=== PATIENT | female | born 1960 | race Caucasian/White ===

== ENCOUNTER 2018-05-30 20:09 | Emergency (ER) | payer OTHER, SELFPAY ==
[2018-05-30 20:17] VITALS: BP 154/84; PULSE 100; RESP 18; TEMP 37.1; O2SAT 100
[2018-05-30] MEDS: SODIUM CHLORIDE 0.9% 1,000 ML 1000 ML IV ×2 (20:35→21:44)
[2018-05-30 20:42] LABS: Add Manual Diff / Slide Review NO; Eosinophils Percent Auto 1.2 % (2-4); Hemoglobin 15.4 g/dL (12.0-16.0); Lymphocytes Percent Auto 22.9 % (25-40); Mean Corpuscular HGB Conc 34.1 % (30-36); Mean Corpuscular Hemoglobin 30.3 PG (26-34); Mean Corpuscular Volume 88.8 fL (80-100); Monocytes Percent Auto 9.3 % (3-14); Neutrophils Absolute Auto 4100 /uL (3000-5900); Neutrophils Percent Auto 65.6 % (50-75); Platelet Count 217 X10^3/uL (150-400); Red Blood Cell Count 5.07 X10^6/uL (4.0-5.2); Red Cell Distribution Width 13.5 % (11.6-14.8); White Blood Cell Count 6.3 X10^3/uL (4.5-11.0)
[2018-05-30] MEDS: MECLIZINE HCL 12.5 MG TABLET 50 MG PO (20:45)
--- NOTE | 2018-05-30 20:50 | ED_ITS ---
HPI - Dizziness <Noris Willett PA-C - Last Filed: 05/30/18 22:23> General Chief Complaint: Dizziness Stated Complaint: VERTIGO Time Seen by Provider: 05/30/18 20:29 Source: patient Mode of arrival: ambulatory Limitations: no limitations History of Present Illness HPI Narrative: This 57-year-old female comes in due to 3 day history of nausea and vomiting and then onset of vertigo. She states that initially she woke up feeling dehydrated and like she might get a headache, so she had a big glass of water and took Excedrin and went back to bed , vomited a while later. She then woke up with vertigo, noticed when she got up out of bed. She states that she is asymptomatic if she stays still, but when she gets up and moves around or turns her head, the world starts to spin. She states that she has had nausea and vomiting associated with the episodes. She states that she has only vomited once today because she has tried to stay still. She states that she does have a history of migraine but has not had any headache. She denies any acute vision changes though states maybe a couple of weeks ago she started to notice her vision in general is a little bit blurry. She denies any earache or congestion or recent URI symptoms, but states she has noticed some ringing sensation in her ears since this started. She cannot tell what. She denies any chest pain or dyspnea. she has not noted any weakness, numbness, difficulty with speech, swallowing or coordination. She denies any fever. She has not had any abdominal pain, diarrhea, any urinary symptoms or other new complaints on systems review. She states that she has not been eating and drinking and mainly staying still due to the symptoms Related Data Previous Rx's Medication Instructions Recorded diazepam [Valium] 5 mg PO BID-TID PRN #5 tab 05/30/18 meclizine 25 mg PO BID-TID PRN #14 tab 05/30/18 ondansetron 4 mg PO BID-TID PRN #10 tab 05/30/18 Allergies Allergy/AdvReac Type Severity Reaction Status Date / Time Sulfa (Sulfonamide Allergy Unknown Verified 05/30/18 20:20 Antibiotics) Review of Systems <Noris Willett PA-C - Last Filed: 05/30/18 22:23> Review of Systems All systems reviewed & are unremarkable except as noted in HPI and below PFSH <Noris Willett PA-C - Last Filed: 05/30/18 22:23> Comment: rare EtOH, no street drugs Exam <Noris Willett PA-C - Last Filed: 05/30/18 22:23> Narrative Exam Narrative: GENERAL APPEARANCE: Patient resting comfortably on her side, in NAD HEENT: PERRL, EOMI, normal TMs and oropharynx NECK: Supple, no masses LUNGS: Clear to auscultation bilaterally. HEART: Rate and rhythm regular without murmur, normal S1 and S2, no S3 or S4. ABDOMEN: Soft, NT, ND, + BS x 4 quadrants NEUROLOGIC: Alert and oriented, normal speech, and coordination. no facial droop. Vertigo is elicited with position change. There are a few beats of horizontal nystagmus to the right side with position change MUSCULOSKELETAL: Full Csp AROM EXTREMITIES: No edema or calf tenderness Initial Vital Signs Initial Vital Signs: Vital Signs Temperature 98.7 F 05/30/18 20:17 Pulse Rate 100 H 05/30/18 20:17 Respiratory Rate 18 05/30/18 20:17 Blood Pressure 154/84 H 05/30/18 20:17 Pulse Oximetry 100 05/30/18 20:17 <Austin Benitez DO - Last Filed: 05/31/18 00:02> Initial Vital Signs Initial Vital Signs: Vital Signs Temperature 98.7 F 05/30/18 20:17 Pulse Rate 100 H 05/30/18 20:17 Respiratory Rate 18 05/30/18 20:17 Blood Pressure 154/84 H 05/30/18 20:17 Pulse Oximetry 100 05/30/18 20:17 Course <BRANDY Brown Last Filed: 05/30/18 22:23> Orders Ordered: ED Orders 05/30/18 20:35 Complete Blood Count AUTO DIFF Stat Comprehensive Metabolic Panel Stat Lipase Stat Discontinued Medications Sodium Chloride (Normal Saline 0.9%) 1,000 mls @ 1,000 mls/hr IV BOLUS ONE Stop: 05/30/18 21:29 Last Infusion: 05/30/18 21:40 Dose: 1,000 mls/hr Admin: 05/30/18 20:35 Dose: 1,000 mls/hr Sodium Chloride (Normal Saline 0.9%) 1,000 mls @ 1,000 mls/hr IV BOLUS ONE Stop: 05/30/18 22:27 Last Infusion: 05/30/18 22:45 Dose: 1,000 mls/hr Admin: 05/30/18 21:44 Dose: 1,000 mls/hr Ketorolac Tromethamine (Toradol) 30 mg IV NOW ONE Stop: 05/30/18 21:07 Last Admin: 05/30/18 21:10 Dose: 30 mg Lorazepam (Ativan) 1 mg IV NOW ONE Stop: 05/30/18 22:16 Last Admin: 05/30/18 22:27 Dose: 1 mg Meclizine HCl (Antivert) 50 mg PO NOW ONE Stop: 05/30/18 20:43 Last Admin: 05/30/18 20:45 Dose: 50 mg Vital Signs - 8 hr 05/30/18 20:17 05/30/18 21:47 05/30/18 22:00 Temperature 98.7 F 98.7 F Pulse Rate 100 H 100 H 80 Respiratory Rate 18 18 15 Blood Pressure 154/84 H 154/84 H Blood Pressure [Right Arm] 128/57 L Pulse Oximetry 100 100 97 05/30/18 23:22 Temperature Pulse Rate 76 Respiratory Rate 13 Blood Pressure Blood Pressure [Right Arm] 107/66 Pulse Oximetry 100 <Austin Benitez DO - Last Filed: 05/31/18 00:02> Orders Ordered: ED Orders 05/30/18 20:35 Complete Blood Count AUTO DIFF Stat Comprehensive Metabolic Panel Stat Lipase Stat Discontinued Medications Sodium Chloride (Normal Saline 0.9%) 1,000 mls @ 1,000 mls/hr IV BOLUS ONE Stop: 05/30/18 21:29 Last Infusion: 05/30/18 21:40 Dose: 1,000 mls/hr Admin: 05/30/18 20:35 Dose: 1,000 mls/hr Sodium Chloride (Normal Saline 0.9%) 1,000 mls @ 1,000 mls/hr IV BOLUS ONE Stop: 05/30/18 22:27 Last Infusion: 05/30/18 22:45 Dose: 1,000 mls/hr Admin: 05/30/18 21:44 Dose: 1,000 mls/hr Ketorolac Tromethamine (Toradol) 30 mg IV NOW ONE Stop: 05/30/18 21:07 Last Admin: 05/30/18 21:10 Dose: 30 mg Lorazepam (Ativan) 1 mg IV NOW ONE Stop: 05/30/18 22:16 Last Admin: 05/30/18 22:27 Dose: 1 mg Meclizine HCl (Antivert) 50 mg PO NOW ONE Stop: 05/30/18 20:43 Last Admin: 05/30/18 20:45 Dose: 50 mg Vital Signs - 8 hr 05/30/18 20:17 05/30/18 21:47 05/30/18 22:00 Temperature 98.7 F 98.7 F Pulse Rate 100 H 100 H 80 Respiratory Rate 18 18 15 Blood Pressure 154/84 H 154/84 H Blood Pressure [Right Arm] 128/57 L Pulse Oximetry 100 100 97 05/30/18 23:22 Temperature Pulse Rate 76 Respiratory Rate 13 Blood Pressure Blood Pressure [Right Arm] 107/66 Pulse Oximetry 100 MDM - Dizziness <Noris Willett PA-C - Last Filed: 05/30/18 22:23> Lab Data Result diagrams: 05/30/18 20:35 05/30/18 20:35 Lab Results 05/30/18 05/30/18 Range/Units 20:35 20:35 WBC 6.3 (4.5-11.0) X10^3/uL RBC 5.07 (4.0-5.2) X10^6/uL Hgb 15.4 (12.0-16.0) g/dL Hct 45.0 (36-46) % MCV 88.8 (80-100) fL MCH 30.3 (26-34) PG MCHC 34.1 (30-36) % RDW 13.5 (11.6-14.8) % Plt Count 217 (150-400) X10^3/uL Neut % (Auto) 65.6 (50-75) % Lymph % (Auto) 22.9 L (25-40) % Schley % (Auto) 9.3 (3-14) % Eos % (Auto) 1.2 L (2-4) % Baso % (Auto) 1.0 (0-2) % Neut # (Auto) 4100 (7390-9393) /uL Sodium 143 (137-145) mmol/L Potassium 3.8 (3.4-5.1) mmol/L Chloride 103 (98-107) mmol/L Carbon Dioxide 26 (22-32) mmol/L BUN 10 (7-17) mg/dL Creatinine 0.80 (0.52-1.04) mg/dL Estimated GFR > 60.0 (>60) mL/min BUN/Creatinine Ratio 12.5 (6-22) Glucose 113 H (70-100) mg/dL Calcium 10.1 (8.4-10.2) mg/dL Total Bilirubin 0.5 (0.2-1.3) mg/dL AST 24 (14-36) IU/L ALT 40 (9-52) IU/L Alkaline Phosphatase 102 (38-126) U/L Total Protein 8.0 (6.3-8.2) g/dL Albumin 4.7 (3.5-5.0) g/dL Globulin 3.3 (1.7-4.1) g/dL Albumin/Globulin Ratio 1.4 (1.0-2.8) Lipase 52 (23-300) U/L <Austin Benitez DO - Last Filed: 05/31/18 00:02> Lab Data Lab Results 05/30/18 05/30/18 Range/Units 20:35 20:35 WBC 6.3 (4.5-11.0) X10^3/uL RBC 5.07 (4.0-5.2) X10^6/uL Hgb 15.4 (12.0-16.0) g/dL Hct 45.0 (36-46) % MCV 88.8 (80-100) fL MCH 30.3 (26-34) PG MCHC 34.1 (30-36) % RDW 13.5 (11.6-14.8) % Plt Count 217 (150-400) X10^3/uL Neut % (Auto) 65.6 (50-75) % Lymph % (Auto) 22.9 L (25-40) % Schley % (Auto) 9.3 (3-14) % Eos % (Auto) 1.2 L (2-4) % Baso % (Auto) 1.0 (0-2) % Neut # (Auto) 4100 (0497-8543) /uL Sodium 143 (137-145) mmol/L Potassium 3.8 (3.4-5.1) mmol/L Chloride 103 (98-107) mmol/L Carbon Dioxide 26 (22-32) mmol/L BUN 10 (7-17) mg/dL Creatinine 0.80 (0.52-1.04) mg/dL Estimated GFR > 60.0 (>60) mL/min BUN/Creatinine Ratio 12.5 (6-22) Glucose 113 H (70-100) mg/dL Calcium 10.1 (8.4-10.2) mg/dL Total Bilirubin 0.5 (0.2-1.3) mg/dL AST 24 (14-36) IU/L ALT 40 (9-52) IU/L Alkaline Phosphatase 102 (38-126) U/L Total Protein 8.0 (6.3-8.2) g/dL Albumin 4.7 (3.5-5.0) g/dL Globulin 3.3 (1.7-4.1) g/dL Albumin/Globulin Ratio 1.4 (1.0-2.8) Lipase 52 (23-300) U/L MDM Narrative Medical decision making narrative: Received turned over from day [facility]. Patient with a current diagnosis of peripheral vertigo. She was given meclizine which did not improve her symptoms. Was given fluids which did not improve her symptoms. She was then given benzodiazepine which she states did improve her symptoms but did not completely take the symptoms away. Otherwise normal neurologic exam. Had a discussion with the patient regarding her symptoms. Informed her the importance of establishing care with a primary care doctor. Will send home with a prescription of both Antivert and Valium with instructions to use the Valium only in refractory cases. Also sent home with a prescription for Zofran. Patient was given return precautions. She expressed understanding and agreement with plan. Discharge Plan Departure Patient Disposition: Home Clinical Impression: Vertigo Instructions: DI for Vertigo Activity Restrictions/Additional Instructions: Please drink clear fluids and eat small amounts of food every hour or 2 to help with your nausea. Move very slowly and move your whole body at once when you get up. You can use the medicine we gave you for nausea as needed. You should call your [facility] first thing in the morning and let them know that you were seen in the emergency room with several days of vertigo and ringing in your ears. See if they want you to follow up there or do a local referral (i.e. for an ear/nose/throat specialist). you should return if you have any acutely worsening symptoms again, i.e. inability to keep down fluids, severe headache, or new symptoms such as fever, weakness in your face or extremities, or difficulty with speech or swallowing Prescriptions: New meclizine 25 mg tablet 25 mg PO BID-TID PRN (Reason: motion sickness) Qty: 14 RF: 0 ondansetron 4 mg tablet,disintegrating 4 mg PO BID-TID PRN (Reason: nausea and vomiting) Qty: 10 RF: 0 diazepam [Valium] 5 mg tablet 5 mg PO BID-TID PRN (Reason: vertigo) Qty: 5 RF: 0 Referrals: [facility] [Other] ED Cosign/Signout <Noris Willett PA-C - Last Filed: 05/30/18 22:23> Sign Out Provider Sign Out Attestation: patient has not had any recurrent vomiting. Earlier in the evening she stated that she was starting to get a slight headache , which resolved completely after Toradol, but she did not think that vertigo was better, had great difficulty getting up to commode due to dizziness. she was able to tolerate a cracker and some juice. Findings reviewed with Dr. Benitez and we will try a dose of Ativan and he will monitor until discharge. discussed plan with her of calling her primary care office ( she has been seen once but does not remember specific provider ) 1st thing in the morning to arrange follow-up and possible local referral to ENT since she has had new tinnitus with this.
[2018-05-30 20:53] LABS: Alanine Aminotransferase 40 IU/L (9-52); Albumin 4.7 g/dL (3.5-5.0); Albumin Globulin Ratio 1.4 (1.0-2.8); Alkaline Phosphatase 102 U/L (38-126); Aspartate Aminotransferase 24 IU/L (14-36); BUN Creatinine Ratio 12.5 (6-22); Bilirubin Total 0.5 mg/dL (0.2-1.3); Blood Urea Nitrogen 10 mg/dL (7-17); Calcium 10.1 mg/dL (8.4-10.2); Carbon Dioxide 26 mmol/L (22-32); Chloride 103 mmol/L (98-107); Estimated Glomerular Filt Rate > 60.0 mL/min (>60); Globulin 3.3 g/dL (1.7-4.1); Glucose 113 mg/dL (70-100); HEMOLYSIS < 15 (0-50); Lipase 52 U/L (23-300); Potassium 3.8 mmol/L (3.4-5.1); Sodium 143 mmol/L (137-145)
[2018-05-30] MEDS: KETOROLAC 60 MG/2 ML VIAL 30 MG IV (21:10)
[2018-05-30 21:47] VITALS: BP 154/84; PULSE 100; RESP 18; TEMP 37.1; O2SAT 100
[2018-05-30 22:00] VITALS: BP 128/57; PULSE 80; RESP 15; O2SAT 97
[2018-05-30] MEDS: LORazepam 2 MG/ML SYRINGE 1 MG IV (22:27)
[2018-05-30 23:22] VITALS: BP 107/66; PULSE 76; RESP 13; O2SAT 100
== END 2018-05-30 23:40 | disposition home or self-care (01) ==
PROVIDERS: Internal Medicine; Emergency Provider Emergency Medicine
DX: R42 Dizziness and giddiness (principal)
CPT/HCPCS: 36415; 36591; 80053; 83690; 85025; 96361; 96374; 96375; 99283; 99284; J1885; J2060

== ENCOUNTER 2020-04-15 13:30 | Outpatient (RCR) | payer OTHER, SELFPAY ==
--- NOTE | 2020-03-25 15:49 | PT.OIE ---
Current Diagnoses Labyrinthitis, right ear (03/25/20) Unspecified hearing loss, right ear (03/25/20) Tinnitus, right ear (03/25/20) Dizziness and giddiness (03/25/20) Past Medical History (Last Updated 05/30/18 @ 20:48 by Noris Willett PA-C) Migraines (Chronic) Past Surgical History (Last Updated 05/30/18 @ 20:48 by Noris Willett PA-C) No pertinent past surgical history (Chronic) Visit Care Team Role Provider Type Antony Briseno MD Primary Care Provider Physician Specialty: Family Practice Address: [address] [place] [address], [id number] Email: Martin Ozuna MD Attending Provider Physician Referring Provider Specialty: Ear, Nose, Throat Address: [address] [place] [address], [address] Email: [email or web address] Physical Therapy Initial Evaluation PT-OP-A Visit Information Start: 03/25/20 08:28 Freq: Status: Active Protocol: Document 03/25/20 13:30 AMB (Rec: 03/25/20 15:28 AMB [email or web address]) Out-Patient Physical Therapy Visit Information Visit Information Visit Type Initial Evaluation Visit Start Time 13:30 Visit Stop Time 14:30 Total Visit Minutes 60 Visit Number 1 PT-OP-B Current Condition Start: 03/25/20 08:28 Freq: Status: Active Protocol: Document 03/25/20 13:30 AMB (Rec: 03/25/20 13:58 AMB [id number]) Current Condition History of Current Condition Onset Date May 2018 Current Complaints dizziness History of Current Condition Chinyere lives on [place] with her . She has had debilitating dizziness, R sided tinnitus for 2 years. Unfortunately she was not able to get vestibular therapy due to insurance issues and then covid. She walks with her dogs, and tries to look in multiple directions while walking. Originally she was hospitalized for a week and had to stay in a hotel for a few weeks afterwards because she couldn't manage at home. Falls: 12-15 in the last 3 months. Was previously biking , kayaking. [place] . Diminished eye sight due to high levels of prednisone. Feels like she has to look at the ground to walk. Treatment Goals Patient/Caregiver Goals Would like to return to some type of work, anyting to reduce the tinnitis, be able to walk and be social again without having to worry about falling. Prior Functional Status Baseline Function- ADL's Independent Baseline Function- Mobility Independent Current Functional Impairments (Reported) Functional Limitations- ADL's Able to dress and cook for herself. Does have 1-2 bad days per month currently where she doesn't trust herself to drive. [place] not at night, not in the city, or in tunnels. Motion sickness has improved. Personal Factors Other Personal Factors That May Effect headaches, [place] [facility], reduced vision, tinnitus PT-OP-C Subjective Start: 03/25/20 08:28 Freq: Status: Active Protocol: Document 03/25/20 13:30 AMB (Rec: 03/25/20 15:28 AMB [email or web address]) Patient Questionnaires Dizziness Handicap Inventory DHI Score 84 DHI Functional Impairment 80 to 99% Impaired (Score 80- 99) PT-OP-O Vestibular Start: 03/25/20 08:28 Freq: Status: Active Protocol: Document 03/25/20 13:30 AMB (Rec: 03/25/20 15:28 AMB [email or web address]) Vestibular Assessment Visual Testing Smooth Pursuits Horizontal WFL Smooth Pursuits Vertical WFL Saccades Horizontal overshooting bilaterally Gaze Evoked Nystagmus With Fixation Negative Thrust Head Positive Bilateral Vestibulo-Ocular Reflex (VOR1) Positive Vestibular Function Tests mCTSIB Position 1 30 sec- increased ankle sway mCTSIB Position 2 30 sec- whole body sway mCTSIB Position 3 30 sec- whole body sway mCTSIB Position 4 5 sec PT-OP-Q Treatments Start: 03/25/20 15:43 Freq: Status: Active Protocol: Document 03/25/20 13:30 AMB (Rec: 03/25/20 15:49 AMB [email or web address]) Neuro Re-Education Treatment Balance Activities 1 Details EC NBOS Surface firm Comments 30x3 Vestibular Rehabilitation VOR Retraining Background white wall Distance From Target 5' Speed slow Position WBOS Reps/Duration 30 seconds PT-OP-T Assessment and Plan Start: 03/25/20 08:28 Freq: Status: Active Protocol: Document 03/25/20 13:30 AMB (Rec: 03/25/20 15:43 AMB [email or web address]) Physical Therapy Assessment Rehab Potential Rehabilitation Potential Good Evaluation Complexity Number of Personal Factors/Comorbidities 1-2 Number of Body Systems Impaired 3 Clinical Presentation at Evaluation Evolving Impairments Impairments Functional Activities,Gait, Vestibular Goals Two Impairment Vestibular Short Term Goal (STG) Chinyere will be indepedent with VOR exercises. STG Duration 4 weeks Residential Goal (LTG) Chinyere will be able to walk with turning her head without loss of balance. LTG Duration 8 weeks One Impairment Balance Short Term Goal (STG) Chinyere will improve her eyes closed balance on foam to balance for 20 seconds without loss of balance. STG Duration 4 weeks Residential Goal (LTG) Chinyere will report less than 2 falls in the past month. LTG Duration 8 weeks Assessment Summary Assessment Chinyere attends physical therapy with almost 2 year history of viral labrynthitis on the right that has lead to almost full hearing loss on the right and a severe decrease in her ability to live her active lifestyle. She was able to tolerate slow VOR exercises at evaluation, but falls with foam and eyes closed. She falls frequently at home, but does not walk with an assistive device at this point . She will benefit from vestibular therapy to train her in how to best manage her reduced right vestibular function. Physical Therapy Plan Frequency and Duration Frequency of Treatment 1x/Week Duration of Treatment 12 weeks Plan of Care Start Date 03/25/20 Plan of Care End Date 06/17/20 Therapeutic Interventions Therapeutic Interventions Neuromuscular Re-education, Therapeutic Activities, Therapeutic Exercises, Vestibular Rehabilitation Next Visit Focus/Plan Next Note Type Treatment Note Next Visit Plan Reassess HEP
--- NOTE | 2020-03-25 15:50 | PT.OPPOC ---
Physical, Occupational & Speech Therapy At [facility] Current Diagnoses Labyrinthitis, right ear (03/25/20) Unspecified hearing loss, right ear (03/25/20) Tinnitus, right ear (03/25/20) Dizziness and giddiness (03/25/20) Visit Care Team Role Provider Type Antony Briseno MD Primary Care Provider Physician Specialty: Family Practice Address: [address] [place] [address], [address] Email: Martin Ozuna MD Attending Provider Physician Referring Provider Specialty: Ear, Nose, Throat Address: [address] [place] [address], [address] Email: [email or web address] Plan Of Care PT-OP-T Assessment and Plan Start: 03/25/20 08:28 Freq: Status: Active Protocol: Document 03/25/20 13:30 AMB (Rec: 03/25/20 15:43 AMB [email or web address]) Physical Therapy Assessment Rehab Potential Rehabilitation Potential Good Evaluation Complexity Number of Personal Factors/Comorbidities 1-2 Number of Body Systems Impaired 3 Clinical Presentation at Evaluation Evolving Impairments Impairments Functional Activities,Gait, Vestibular Goals Two Impairment Vestibular Short Term Goal (STG) Chinyere will be indepedent with VOR exercises. STG Duration 4 weeks Business System Manager Goal (LTG) Chinyere will be able to walk with turning her head without loss of balance. LTG Duration 8 weeks One Impairment Balance Short Term Goal (STG) Chinyere will improve her eyes closed balance on foam to balance for 20 seconds without loss of balance. STG Duration 4 weeks Senior Care Goal (LTG) Chinyere will report less than 2 falls in the past month. LTG Duration 8 weeks Assessment Summary Assessment Chinyere attends physical therapy with almost 2 year history of viral labrynthitis on the right that has lead to almost full hearing loss on the right and a severe decrease in her ability to live her active lifestyle. She was able to tolerate slow VOR exercises at evaluation, but falls with foam and eyes closed. She falls frequently at home, but does not walk with an assistive device at this point . She will benefit from vestibular therapy to train her in how to best manage her reduced right vestibular function. Physical Therapy Plan Frequency and Duration Frequency of Treatment 1x/Week Duration of Treatment 12 weeks Plan of Care Start Date 03/25/20 Plan of Care End Date 06/17/20 Therapeutic Interventions Therapeutic Interventions Neuromuscular Re-education, Therapeutic Activities, Therapeutic Exercises, Vestibular Rehabilitation Next Visit Focus/Plan Next Note Type Treatment Note Next Visit Plan Reassess HEP Plan of Care Dates Plan of Care Start Date 03/25/20 Plan of Care End Date 06/17/20 Electronically Signed by: Uyen Berg, PT 03/25/20 [id number] Please Sign and Return: I have reviewed this Plan of Care and certify that the skilled therapy services above are required to meet the patient?s needs. Physician Signature Date Printed Name and Credentials Clinical Instructor Signature Printed Name and Credentials
--- NOTE | 2020-04-01 16:02 | PT.OTN ---
Current Diagnoses Labyrinthitis, right ear (04/01/20) Unspecified hearing loss, right ear (04/01/20) Tinnitus, right ear (04/01/20) Dizziness and giddiness (04/01/20) Physical Therapy Treatment Note PT-OP-A Visit Information Start: 03/25/20 08:28 Freq: Status: Active Protocol: Document 04/01/20 13:45 AMB (Rec: 04/01/20 14:24 AMB [id number]) Out-Patient Physical Therapy Visit Information Visit Information Visit Type Treatment Note Visit Start Time 13:45 Visit Stop Time 14:30 Total Visit Minutes 45 Visit Number 2 PT-OP-B Current Condition Start: 03/25/20 08:28 Freq: Status: Active Protocol: Document 03/25/20 13:30 AMB (Rec: 03/25/20 13:58 AMB [id number]) Current Condition History of Current Condition Onset Date May 2018 Current Complaints dizziness History of Current Condition Chinyere lives on [place] with her . She has had debilitating dizziness, R sided tinnitus for 2 years. Unfortunately she was not able to get vestibular therapy due to insurance issues and then covid. She walks with her dogs, and tries to look in multiple directions while walking. Originally she was hospitalized for a week and had to stay in a hotel for a few weeks afterwards because she couldn't manage at home. Falls: 12-15 in the last 3 months. Was previously biking , kayaking. [place] Diminished eye sight due to high levels of prednisone. Feels like she has to look at the ground to walk. Treatment Goals Patient/Caregiver Goals Would like to return to some type of work, anyting to reduce the tinnitis, be able to walk and be social again without having to worry about falling. Prior Functional Status Baseline Function- ADL's Independent Baseline Function- Mobility Independent Current Functional Impairments (Reported) Functional Limitations- ADL's Able to dress and cook for herself. Does have 1-2 bad days per month currently where she doesn't trust herself to drive. [place] not at [place], not in the city, or in tunnels. Motion sickness has improved. Personal Factors Other Personal Factors That May Effect headaches, lives [facility], reduced vision, tinnitus PT-OP-C Subjective Start: 03/25/20 08:28 Freq: Status: Active Protocol: Document 04/01/20 13:45 AMB (Rec: 04/01/20 14:24 AMB [id number]) OP-PT Subjective Patient Comments Patient Comments Pt was stung by bees multiple times, and had to take benadryl and felt drunk because of it. Turning into doorways. PT-OP-O Vestibular Start: 03/25/20 08:28 Freq: Status: Active Protocol: Document 03/25/20 13:30 AMB (Rec: 03/25/20 15:28 AMB [email or web address]) Vestibular Assessment Visual Testing Smooth Pursuits Horizontal WFL Smooth Pursuits Vertical WFL Saccades Horizontal overshooting bilaterally Gaze Evoked Nystagmus With Fixation Negative Thrust Head Positive Bilateral Vestibulo-Ocular Reflex (VOR1) Positive Vestibular Function Tests mCTSIB Position 1 30 sec- increased ankle sway mCTSIB Position 2 30 sec- whole body sway mCTSIB Position 3 30 sec- whole body sway mCTSIB Position 4 5 sec PT-OP-Q Treatments Start: 03/25/20 15:43 Freq: Status: Active Protocol: Document 04/01/20 13:45 AMB (Rec: 04/01/20 16:00 AMB [email or web address]) Neuro Re-Education Treatment Balance Activities 2 Details walking with head turns Comments horizontal and vertical 3 Details foam balance eyes closed Comments NBOS 1 Details EC NBOS Surface firm Comments 30x3 Vestibular Rehabilitation VOR Retraining Background white wall Distance From Target 5' Speed slow Position WBOS Reps/Duration 30 seconds Comments added walking towards and away - challenging PT-OP-T Assessment and Plan Start: 03/25/20 08:28 Freq: Status: Active Protocol: Document 04/01/20 13:45 AMB (Rec: 04/01/20 14:24 AMB [id number]) Physical Therapy Assessment Assessment Summary Assessment Chinyere did well today, increasing the speed of her headturns is challenging, but focusing more on function of having her feel more stable in her day to day life. Physical Therapy Plan Next Visit Focus/Plan Next Note Type Treatment Note Next Visit Plan Reassess HEP
--- NOTE | 2020-04-08 16:01 | PT.OTN ---
Current Diagnoses Labyrinthitis, right ear (04/08/20) Unspecified hearing loss, right ear (04/08/20) Tinnitus, right ear (04/08/20) Dizziness and giddiness (04/08/20) Physical Therapy Treatment Note PT-OP-A Visit Information Start: 03/25/20 08:28 Freq: Status: Active Protocol: Document 04/08/20 13:30 AMB (Rec: 04/08/20 14:10 AMB [id number]) Out-Patient Physical Therapy Visit Information Visit Information Visit Type Treatment Note Visit Start Time 13:45 Visit Stop Time 14:30 Total Visit Minutes 45 Visit Number 3 PT-OP-B Current Condition Start: 03/25/20 08:28 Freq: Status: Active Protocol: Document 03/25/20 13:30 AMB (Rec: 03/25/20 13:58 AMB [id number]) Current Condition History of Current Condition Onset Date May 2018 Current Complaints dizziness History of Current Condition Chinyere lives on [place] with her . She has had debilitating dizziness, R sided tinnitus for 2 years. Unfortunately she was not able to get vestibular therapy due to insurance issues and then covid. She walks with her dogs, and tries to look in multiple directions while walking. Originally she was hospitalized for a week and had to stay in a hotel for a few weeks afterwards because she couldn't manage at home. Falls: 12-15 in the last 3 months. Was previously biking , kayaking. [place] . Diminished eye sight due to high levels of prednisone. Feels like she has to look at the ground to walk. Treatment Goals Patient/Caregiver Goals Would like to return to some type of work, anyting to reduce the tinnitis, be able to walk and be social again without having to worry about falling. Prior Functional Status Baseline Function- ADL's Independent Baseline Function- Mobility Independent Current Functional Impairments (Reported) Functional Limitations- ADL's Able to dress and cook for herself. Does have 1-2 bad days per month currently where she doesn't trust herself to drive. [place] not at night, not in the city, or in tunnels. Motion sickness has improved. Personal Factors Other Personal Factors That May Effect headaches, lives on [facility], reduced vision, tinnitus PT-OP-C Subjective Start: 03/25/20 08:28 Freq: Status: Active Protocol: Document 04/08/20 13:30 AMB (Rec: 04/08/20 14:10 AMB [id number]) OP-PT Subjective Patient Comments Patient Comments Pt has been doing her exercises- but she did fall over the dog gate. PT-OP-O Vestibular Start: 03/25/20 08:28 Freq: Status: Active Protocol: Document 03/25/20 13:30 AMB (Rec: 03/25/20 15:28 AMB [email or web address]) Vestibular Assessment Visual Testing Smooth Pursuits Horizontal WFL Smooth Pursuits Vertical WFL Saccades Horizontal overshooting bilaterally Gaze Evoked Nystagmus With Fixation Negative Thrust Head Positive Bilateral Vestibulo-Ocular Reflex (VOR1) Positive Vestibular Function Tests mCTSIB Position 1 30 sec- increased ankle sway mCTSIB Position 2 30 sec- whole body sway mCTSIB Position 3 30 sec- whole body sway mCTSIB Position 4 5 sec PT-OP-Q Treatments Start: 03/25/20 15:43 Freq: Status: Active Protocol: Document 04/08/20 13:30 AMB (Rec: 04/08/20 16:00 AMB [email or web address]) Neuro Re-Education Treatment Balance Activities 1 Details EC NBOS Surface firm Comments 30x3 Vestibular Rehabilitation VOR Retraining Background picture Distance From Target 5' Speed slow Position NBOS Reps/Duration 1 minute x 3 Comments added challenging background Other Activities 1 Details Walking with head turns Comments diagonal PT-OP-T Assessment and Plan Start: 03/25/20 08:28 Freq: Status: Active Protocol: Document 04/08/20 13:30 AMB (Rec: 04/08/20 16:00 AMB [email or web address]) Physical Therapy Assessment Assessment Summary Assessment Chinyere is doing well she continues to have a very slow head turn but it is improving. With metronome she was able to do 45bpm (stopping at each pulse in the middle sides, so not truly 45 bpm). Physical Therapy Plan Next Visit Focus/Plan Next Visit Plan Progress independence at home
--- NOTE | 2020-04-15 15:43 | PT.OTN ---
Current Diagnoses Labyrinthitis, right ear (04/15/20) Unspecified hearing loss, right ear (04/15/20) Tinnitus, right ear (04/15/20) Dizziness and giddiness (04/15/20) Physical Therapy Treatment Note PT-OP-A Visit Information Start: 03/25/20 08:28 Freq: Status: Active Protocol: Document 04/15/20 13:30 AMB (Rec: 04/15/20 14:13 AMB [id number]) Out-Patient Physical Therapy Visit Information Visit Information Visit Type Treatment Note Visit Start Time 13:30 Visit Stop Time 14:15 Total Visit Minutes 45 Visit Number 4 PT-OP-B Current Condition Start: 03/25/20 08:28 Freq: Status: Active Protocol: Document 03/25/20 13:30 AMB (Rec: 03/25/20 13:58 AMB [id number]) Current Condition History of Current Condition Onset Date May 2018 Current Complaints dizziness History of Current Condition Chinyere lives on [place] with her . She has had debilitating dizziness, R sided tinnitus for 2 years. Unfortunately she was not able to get vestibular therapy due to insurance issues and then covid. She walks with her dogs, and tries to look in multiple directions while walking. Originally she was hospitalized for a week and had to stay in a hotel for a few weeks afterwards because she couldn't manage at home. Falls: 12-15 in the last 3 months. Was previously biking , kayaking. [place] . Diminished eye sight due to high levels of prednisone. Feels like she has to look at the ground to walk. Treatment Goals Patient/Caregiver Goals Would like to return to some type of work, anyting to reduce the tinnitis, be able to walk and be social again without having to worry about falling. Prior Functional Status Baseline Function- ADL's Independent Baseline Function- Mobility Independent Current Functional Impairments (Reported) Functional Limitations- ADL's Able to dress and cook for herself. Does have 1-2 bad days per month currently where she doesn't trust herself to drive. [place], not at night, not in the city, or in tunnels. Motion sickness has improved. Personal Factors Other Personal Factors That May Effect headaches, lives on [facility], reduced vision, tinnitus PT-OP-C Subjective Start: 03/25/20 08:28 Freq: Status: Active Protocol: Document 04/15/20 13:30 AMB (Rec: 04/15/20 14:13 AMB [id number]) OP-PT Subjective Patient Comments Patient Comments Pt PT-OP-O Vestibular Start: 03/25/20 08:28 Freq: Status: Active Protocol: Document 03/25/20 13:30 AMB (Rec: 03/25/20 15:28 AMB [email or web address]) Vestibular Assessment Visual Testing Smooth Pursuits Horizontal WFL Smooth Pursuits Vertical WFL Saccades Horizontal overshooting bilaterally Gaze Evoked Nystagmus With Fixation Negative Thrust Head Positive Bilateral Vestibulo-Ocular Reflex (VOR1) Positive Vestibular Function Tests mCTSIB Position 1 30 sec- increased ankle sway mCTSIB Position 2 30 sec- whole body sway mCTSIB Position 3 30 sec- whole body sway mCTSIB Position 4 5 sec PT-OP-Q Treatments Start: 03/25/20 15:43 Freq: Status: Active Protocol: Document 04/15/20 13:30 AMB (Rec: 04/15/20 15:42 AMB [email or web address]) Neuro Re-Education Treatment Balance Activities 4 Details 3 step and bow/sls with HT Comments HEP 2 Details walking with head turns Comments horizontal and vertical, added diagonal 3 Details foam balance eyes closed Comments NBOS 1 Details EC NBOS Surface firm Comments 30x3 Vestibular Rehabilitation VOR Retraining Background black white diagonal Distance From Target 5' Speed slow Position NBOS Reps/Duration 1 minute x 3 Comments added challenging background PT-OP-T Assessment and Plan Start: 03/25/20 08:28 Freq: Status: Active Protocol: Document 04/15/20 13:30 AMB (Rec: 04/15/20 14:13 AMB [id number]) Physical Therapy Assessment Assessment Summary Assessment 7 line difference DVA today will recheck at next visit in one month. PT with high deductible, given HEP and will work independently over the next month and then recheck. Physical Therapy Plan Next Visit Focus/Plan Next Note Type Progress Note Next Visit Plan Progress independence at home
--- NOTE | 2020-05-25 15:42 | PT.OPDS ---
Current Diagnoses Labyrinthitis, right ear (04/15/20) Unspecified hearing loss, right ear (04/15/20) Tinnitus, right ear (04/15/20) Dizziness and giddiness (04/15/20) Visit Care Team Role Provider Type Antony Briseno MD Primary Care Provider Physician Specialty: Family Practice Address: [address] [place] [address], [id number] Email: Martin Ozuna MD Attending Provider Physician Referring Provider Specialty: Ear, Nose, Throat Address: [address] [place] [address], [id number] Email: [email or web address] Visit Number Visit Number 4 Discharge Summary PT-OP-B Current Condition Start: 03/25/20 08:28 Freq: Status: Active Protocol: Document 03/25/20 13:30 AMB (Rec: 03/25/20 13:58 AMB [id number]) Current Condition History of Current Condition Onset Date May 2018 Current Complaints dizziness History of Current Condition Chinyere lives on [place] with her . She has had debilitating dizziness, R sided tinnitus for 2 years. Unfortunately she was not able to get vestibular therapy due to insurance issues and then covid. She walks with her dogs, and tries to look in multiple directions while walking. Originally she was hospitalized for a week and had to stay in a hotel for a few weeks afterwards because she couldn't manage at home. Falls: 12-15 in the last 3 months. Was previously biking , kayaking. [place] . Diminished eye sight due to high levels of prednisone. Feels like she has to look at the ground to walk. Treatment Goals Patient/Caregiver Goals Would like to return to some type of work, anyting to reduce the tinnitis, be able to walk and be social again without having to worry about falling. Prior Functional Status Baseline Function- ADL's Independent Baseline Function- Mobility Independent Current Functional Impairments (Reported) Functional Limitations- ADL's Able to dress and cook for herself. Does have 1-2 bad days per month currently where she doesn't trust herself to drive. [place] not at night, not in the city, or in tunnels. Motion sickness has improved. Personal Factors Other Personal Factors That May Effect headaches, lives on [facility], reduced vision, tinnitus PT-OP-C Subjective Start: 03/25/20 08:28 Freq: Status: Active Protocol: Document 04/15/20 13:30 AMB (Rec: 04/15/20 14:13 AMB [id number]) OP-PT Subjective Patient Comments Patient Comments Pt PT-OP-O Vestibular Start: 03/25/20 08:28 Freq: Status: Active Protocol: Document 03/25/20 13:30 AMB (Rec: 03/25/20 15:28 AMB [email or web address]) Vestibular Assessment Visual Testing Smooth Pursuits Horizontal WFL Smooth Pursuits Vertical WFL Saccades Horizontal overshooting bilaterally Gaze Evoked Nystagmus With Fixation Negative Thrust Head Positive Bilateral Vestibulo-Ocular Reflex (VOR1) Positive Vestibular Function Tests mCTSIB Position 1 30 sec- increased ankle sway mCTSIB Position 2 30 sec- whole body sway mCTSIB Position 3 30 sec- whole body sway mCTSIB Position 4 5 sec PT-OP-T Assessment and Plan Start: 03/25/20 08:28 Freq: Status: Active Protocol: Document 05/25/20 15:41 AMB (Rec: 05/25/20 15:42 AMB [email or web address]) Physical Therapy Assessment Assessment Summary Assessment Chinyere called to cancel her remaining appointments due to Covid. She attended 4 appointments and was instructed in a HEP that she was very consistent with. She continued to have chronic vestibular challenges and would be welcome to return to physical therapy at a time when she is comfortable.
== END 2020-05-29 09:50 ==
LOC: PHYS 13:30
PROVIDERS: PCP Family Medicine; Referring Provider Otolaryngology; Visit Provider Otolaryngology
DX: H83.01 Labyrinthitis, right ear (principal); H91.91 Unspecified hearing loss, right ear; H93.11 Tinnitus, right ear; R42 Dizziness and giddiness
CPT/HCPCS: 97112; 97162

== ENCOUNTER → 2020-10-20 10:55 | Outpatient (CLI) | payer OTHER, SELFPAY ==
--- NOTE | 2020-10-20 | DI.MG.S_ITS ---
BILATERAL DIGITAL SCREENING MAMMOGRAM 3D/2D WITH CAD: 10/20/2020 CLINICAL: Routine screening. Comparison is made to exams dated: 08/28/2018 mammogram, 11/03/2015 mammogram, and 07/02/2014 mammogram - outside location. The tissue of both breasts is heterogeneously dense. This may lower the sensitivity of mammography. Current study was also evaluated with a Computer Aided Detection (CAD) system. There are benign calcifications in both breasts. No significant masses, calcifications, or other findings are seen in either breast. There has been no significant interval change. IMPRESSION: BENIGN There is no mammographic evidence of malignancy. A 1 year screening mammogram is recommended. This exam was interpreted at Station ID: [id number]. NOTE: For mammograms, a report in lay terms will be sent to the patient. Approximately 15% of breast malignancies will not be visualized mammographically. In the management of a palpable breast mass, a negative mammogram must not discourage biopsy of a clinically suspicious lesion. Electronically Signed By: Parker lee/sterling:10/20/2020 11:44:25 letter sent: Normal Exam ACR BI-RADS Category 2: Benign Finding(s) [id number]
== END ==
PROVIDERS: PCP Family Medicine; Referring Provider Family Medicine; Visit Provider Family Medicine
DX: Z12.31 Encounter for screening mammogram for malignant neoplasm of breast (principal); Z13.820 Encounter for screening for osteoporosis; M85.852 Other specified disorders of bone density and structure, left thigh; Z78.0 Asymptomatic menopausal state; Z82.62 Family history of osteoporosis; Z87.891 Personal history of nicotine dependence
CPT/HCPCS: 77063; 77067; 77080